=== PATIENT | female | born 1985 | race Caucasian/White ===

== ENCOUNTER 2017-10-27 16:46 | Emergency (ER) | payer BC ==
[2017-10-27 18:01] VITALS: BMI 24.3
[2017-10-27] MEDS ORDERED: Betamethasone Soluspan 30 mg/5mL Inj Susp IM ONE (18:04)
[2017-10-27 18:51] LABS: BASO % 0.3 % (0.0-2.0); EOS % 0.3 % (0.0-4.0); HEMOGLOBIN 11.3 g/dL (12.0-16.0); LYMPH % 19.1 % (20.0-40.0); MEAN CELL VOLUME 88.7 fl (81.0-99.0); MEAN CORPUSCULAR HEMOGLOBIN 30.2 pg (27.0-31.0); MEAN PLATELET VOLUME 8.6 fl (7.2-11.7); MONO # 0.7 K/uL (0.0-0.8); MONO % 6.5 % (0.0-10.0); NEUT # 7.5 K/uL (1.8-7.0); NEUT % 73.8 % (50.0-75.0); NRBC % 0.1 % (0.0-0.0); RBC 3.73 Mil/uL (3.80-5.20); RED CELL DISTRIBUTION WIDTH 12.6 % (11.5-14.5); WHITE BLOOD COUNT 10.2 K/uL (4.8-10.8)
[2017-10-27] MEDS: Magnesium Sulfate 1 GM in Dextrose 5% In Water 100 ML IVPB SCH ×2 (19:10→19:47)
--- NOTE | 2017-10-27 21:42 | OBDCSUM ---
Datetime: 10/27/2017 21:40 Discharged to, Provider: Other Discharge Comment, Provider: Pt transferred to [facility] Discharge Diagnosis Prov Other: IUGR with reversal of diastolic flow
--- NOTE | 2017-10-27 21:42 | OBHP ---
Datetime: 10/27/2017 18:45 IP Adm Impression: , intrauterine IP Chief Complaint Other: placental reversal blood flow Admit Comment, IP Provider: HPI: The patient is a 32 y/o with EGA of 27.2 weeks twin , EDC 01/25/18 who presents to the EDOB today sent from her Care Provider's office after hien reid a sonogram report placental reversal blood flow. Patient today denies vaginal bleeding, uterine CO NTX, LOF, abdominal pain. Patient reports positive FM. Patient denies recent sexual activity, trauma, fall, dizziness, MENDOZA, CP, SOB, palpitations, N/V, dysuria. ROS: Unremarkable, except as per HPI OBGYN: Menarche 13 y/o. 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 Patient denies problems in current . Care Provider: Dr Carr. PMHx: Hypothyroidism. FMHx: None SurgHx: appendectomy. SocialHX: denies tobacco/ETOH/Rec Drug use Allergies: NKA MEDS: PNV, Levothyroxine 25 mcg QD. LABS: Unable to obtain records at this time Assessmnet: 32 y/o with 27.2 EGA twin with DALILA 01/25/18, who presents for evalualtion of revers al blood flow of placenta. Plan: -Due to patient high risk, transfer to [facility] for eval. Case discussed with attending Dr Diaz. Luis Goode MD PGY1 Addendum by Dr. Diaz: I have evaluated the patient independently and I agree with the above Comments, ACOG Physical Exam: GEN: NAD HEENT:normocepahlic, EOMI RESP: CTA b/l CV: RRR, no murmurs noted ABD: gravid, Soft , non-tender LE: No edema, Rosy's negative EGA AdmitDate IP: 27.1 Vital Signs Provider: Reviewed IP Chief Complaint: Other
[2017-10-28 15:09] VITALS: BP 117/81; PULSE 92; RESP 16; TEMP 98.7; O2SAT 100
== END 2017-10-27 21:37 | disposition designated cancer center or children's hospital (05) ==
LOC: H.EROB2 16:46
DX: O30.002 Twin pregnancy, unspecified number of placenta and unspecified number of amniotic sacs, second trimester (principal); O43.92 Unspecified placental disorder, second trimester; Z3A.27 27 weeks gestation of pregnancy; O09.92 Supervision of high risk pregnancy, unspecified, second trimester
CPT/HCPCS: 85025; 96365; 96372; 99283; J0702; J3475